=== PATIENT | female | born 1945 | race Caucasian/White ===

== ENCOUNTER 2024-02-10 11:08 | Day surgery (SDC) | payer MEDICARE ==
[2024-02-07 15:33] LABS: BASOPHILS % (AUTO) 0.5 % (0-1); EOSINOPHILS # (AUTO) 0.1 X10'3 (0-0.9); EOSINOPHILS % (AUTO) 1.5 % (0-6); LYMPHOCYTES # (AUTO) 1.8 X10'3 (1.1-4.8); MEAN CORPUSCULAR HEMOGLOBIN 30.7 PG (27.0-31.0); MEAN CORPUSCULAR HGB CONC 34.3 g/dL (33.0-36.5); MEAN CORPUSCULAR VOLUME 89.6 FL (78-98); MEAN PLATELET VOLUME 6.5 FL (7.4-10.4); MONOCYTES # (AUTO) 0.5 X10'3 (0-0.9); MONOCYTES % (AUTO) 9.9 % (2-12); NEUTROPHILS # (AUTO) 2.7 X10'3 (1.8-7.7); NEUTROPHILS % (AUTO) 53.1 % (42-75); PRE OP HEMATOCRIT 38.9 % (35.0-45.0); PRE OP HEMOGLOBIN 13.3 g/dL (12.0-16.0); PRE OP PLATELET COUNT 243 X10'3 (140-440); PRE OP WHITE BLOOD COUNT 5.1 10'3 (4.8-10.8); RED BLOOD COUNT 4.34 X10'6 (4.20-5.60); RED CELL DISTRIBUTION WIDTH 12.7 % (11.5-14.5)
[2024-02-07 15:42] LABS: PRE OP PROTIME 10.6 SECONDS (9.0-12.0)
[2024-02-07 15:53] LABS: ALBUMIN 3.6 G/DL (3.4-5.0); ALBUMIN/GLOBULIN RATIO 1.2 (1.1-1.5); ALKALINE PHOSPHATASE 74 IU/L (46-116); BLOOD UREA NITROGEN 22 MG/DL (7-18); CALCIUM 8.7 MG/DL (8.5-10.1); CHLORIDE 106 MMOL/L (99-107); CREATININE 0.71 MG/DL (0.40-0.90); PRE OP ALT 29 U/L (30-65); PRE OP ANION GAP 5 (8-16); PRE OP AST 10 U/L (10-37); PRE OP BILIRUB, TOTAL 0.4 MG/DL (0.0-1.0); PRE OP GLUCOSE 110 MG/DL (70-104); PRE OP POTASSIUM 3.6 MMOL/L (3.4-5.1); PRE OP SODIUM 144 MMOL/L (135-145); TOTAL CARBON DIOXIDE 32.6 MMOL/L (24-32); TOTAL PROTEIN 6.7 G/DL (6.4-8.2); eGFR 80 ML/MIN
[~2024-02-10] VITALS: Ht 157.5 cm; Wt 54.4 kg
[2024-02-10] VITALS (13 sets, daily range): BP systolic 121–163; BP diastolic 67–92; PULSE 55–79; RESP 0–21; TEMP 96.8; O2SAT 96–100
[2024-02-10] MEDS: ringers solution, lacted 1,000 ML IV SCH ×2 (05:30→14:48)
[2024-02-10] MEDS: cefazolin 2gm/D5W 100mL 100 ML IV ONE (05:30)
[2024-02-10] MEDS: famotidine 20mg tablet PO ONE (05:30)
[~2024-02-10 11:08] MED LIST: ASPI81TA52 PO; BETA CAROTENE PO; CALCIUM PO; EZET10TA48 PO; GOLDEN SEAL PO; MAGN400C PO; SELINIUM PO; SIMV-45 PO; UBID50TA3 PO; VITA-325 PO; VITAMIN B PO; VITE400C PO; [UNRECOGNIZED DRUG - OTHER] PO
[2024-02-10] MEDS: methylene blue (5mg/ml) 50mg/10ml ampul IV ONE (12:17)
[2024-02-10] MEDS: BUPIVAcaine/PF 2.5mg/ml (0.25%) 10ml vial ONE (12:18)
[2024-02-10] MEDS: BUPIVACAINE liposomal/PF 13.3 MG/ML vial IM ONE (12:18)
[2024-02-10] MEDS ORDERED: ondansetron/PF 4mg/2ml inj IV PRN (12:45)
[2024-02-10] MEDS ORDERED: hydrALAZINE 20mg/ml inj. IV PRN (12:45)
[2024-02-10] MEDS ORDERED: proCHLORperazine 10 MG/2 ml inj IV PRN (12:45)
[2024-02-10] MEDS ORDERED: labetalol 20mg/4ml (5mg/ml) syringe IV PRN (12:45)
[2024-02-10] MEDS ORDERED: HYDROmorphone/PF 0.2 MG/ML SYRINGE IV PRN ×2 (12:45)
[2024-02-10] MEDS ORDERED: meperidine/PF 25mg/ml syringe IV PRN ×2 (12:45)
[2024-02-10] MEDS ORDERED: sevoflurane 250ml liquid IH ONE (12:46)
[2024-02-10] MEDS ORDERED: fentaNYL/PF 50MCG/1 ML 2ML syringe ONE (12:47)
[2024-02-10] MEDS ORDERED: midazolam 1 mg/ML 2ml injection ONE (13:00)
[2024-02-10] MEDS ORDERED: LIDOcaine 2% (20mg/ml) 5ml vial ONE (13:01)
[2024-02-10] MEDS ORDERED: dexamethasone sod phosphate 4mg/ml inj. ONE (13:01)
[2024-02-10] MEDS ORDERED: ondansetron/PF 4mg/2ml inj ONE (13:01)
[2024-02-10] MEDS ORDERED: propofol inj 20 ML IV ONE (13:01)
[2024-02-10] MEDS: BUPIVAcaine 0.25% w/Epi /PF 30ml vial IJ ONE (13:53)
[2024-02-10] MEDS: LIDOcaine 1% (10mg/ml)w/preservative inj. 20ml MDV ONE (13:55)
[2024-02-10] MEDS: acetaminophen 1,000mg/100ml IV 100 ML IV ONE (14:26)
[2024-02-10] MEDS: meperidine/PF 25mg/ml syringe IV PRN (14:27)
== END 2024-02-10 16:06 | disposition home or self-care (01) ==
LOC: PAS 11:08
PROVIDERS: ATTEND Surgery
DX: D05.12 Intraductal carcinoma in situ of left breast (principal); I44.4 Left anterior fascicular block; E78.5 Hyperlipidemia, unspecified; I20.9 Angina pectoris, unspecified; I25.2 Old myocardial infarction; M19.90 Unspecified osteoarthritis, unspecified site; Z86.718 Personal history of other venous thrombosis and embolism; Z79.82 Long term (current) use of aspirin; Z79.899 Other long term (current) drug therapy; Z90.710 Acquired absence of both cervix and uterus; Z98.890 Other specified postprocedural states; Z88.2 Allergy status to sulfonamides; Z88.5 Allergy status to narcotic agent; Z80.0 Family history of malignant neoplasm of digestive organs; Z80.41 Family history of malignant neoplasm of ovary
CPT/HCPCS: 19301; 36415; 38525; 38900; 76098; 80053; 82948; 85025; 85610; 85730; 93005; A4215; A4615; A4618; A6258; A6446; A7000; J0131; J0690; J1100; J2001; J2175; J2250; J2405; J2704; J3010; J3490; J7030; J7120; Q9968; Z7506; Z7508; Z7512; Z7610; C9290; S0020